=== PATIENT | male | born 1950 | race African-American/Black ===

== ENCOUNTER 2020-07-28 17:07 | Emergency (ER) | payer MEDICARE, MEDICAID ==
[~2020-07-28] VITALS: Ht 177.8 cm; Wt 83.0 kg
[~2020-07-28 17:07] MED LIST: AMLO-337 MT; HYDR-4346 MT; NITR0.4T49 SL
[2020-07-28 18:00] VITALS: BP 133/68
== END 2020-07-28 18:53 | disposition left against medical advice (07) ==
LOC: ER 17:07
DX: R94.31 Abnormal electrocardiogram [ECG] [EKG] (principal); Z01.89 Encounter for other specified special examinations
CPT/HCPCS: 93005; 99283